=== PATIENT | female | born 1960 | race Caucasian/White ===

== ENCOUNTER → 2019-11-04 | Outpatient (CLI) | payer BC ==
--- NOTE | 2019-11-04 12:40 | Diagnostic Imaging Report ---
INDICATION: Pain and swelling in left knee. TECHNIQUE: AP, oblique, and lateral views of the left knee are obtained. FINDINGS: No fracture or acute bony abnormality is seen. Joint spaces are unremarkable. IMPRESSION: Negative left knee. Dictated by: Dictated on workstation # [id number]
== END ==
LOC: RAD FS 12:26
PROVIDERS: ATTEND Nurse Practitioner
DX: M25.562 Pain in left knee (principal)
CPT/HCPCS: 73562

== ENCOUNTER → 2019-12-15 | Outpatient (CLI) | payer BC ==
--- NOTE | 2019-12-15 15:52 | Diagnostic Imaging Report ---
PROCEDURE: MRI right joint upper extremity without contrast. TECHNIQUE: Multiplanar, multisequence non contrast-enhanced MRI of the right upper extremity was accomplished. INDICATION: Injury. Shoulder pain. COMPARISON: There are no prior studies available for comparison. FINDINGS: The T2 fat-saturated series shows a prominent area of increased signal within the substance of the midportion of the rotator cuff (page 7/17). There is also a much smaller area of altered signal along the anterior insertion of the rotator cuff. These findings are suspicious for partial tears. It is conceivable that these could also be related to tendinosis alone. The supraspinatus muscle is not retracted or bunched. There is mild hypertrophy of the acromioclavicular joint and this does result in slight narrowing of the outlet for the supraspinatus muscle. The labrum is thinned centrally and probably slightly torn on a degenerative basis. Furthermore, there is a band of increased signal extending through the superior labrum on the T2 fat-saturated series (image 8/17). This does suggest a SLAP 2 tear. The biceps tendon and the subscapularis tendon are intact. There is no abnormal signal arising from the osseous structures to suggest bone edema or fracture. There is an area of altered signal in the greater tuberosity. This is probably due to degenerative disease. There is a trace amount of fluid in the glenohumeral joint. There is also a small amount of fluid in the bursa anterior to the joint. There is also a trace amount of fluid in the subdeltoid bursa. The presence of the fluid does suggest that there is an element of mild bursitis present. IMPRESSION: 1. The areas of altered signal within the rotator cuff are indeterminate. Whether these are secondary to partial tears or tendinosis alone is unclear. The supraspinatus muscle however is not retracted or bunched. 2. There is mild hypertrophy of the acromioclavicular joint and this does result in slight narrowing of the outlet for the supraspinatus muscle. 3. The labrum is slightly torn centrally on a degenerative basis. There also appears to be a SLAP 2 tear. 4. There is no acute bony abnormality identified. 5. There is a small joint effusion present. The fluid in the bursa anterior to the shoulder joint and the trace amount of fluid in the subdeltoid bursa also suggests that there is an element of mild bursitis present. Dictated by: Dictated on workstation # [id number]
--- NOTE | 2019-12-15 16:11 | Diagnostic Imaging Report ---
PROCEDURE: MRI left joint lower extremity without contrast. TECHNIQUE: Multiplanar, multisequence non contrast-enhanced MRI of the left lower extremity was accomplished. INDICATION: Knee pain after fall. FINDINGS: Images are somewhat limited due to motion on several of the acquisitions. Anterior cruciate and posterior cruciate ligaments are intact. Both the superficial and deep components of the medial collateral ligament are intact. Biceps femoris, tibial collateral and iliotibial band are intact. Popliteus tendon is intact. There is some myxoid degeneration in the posterior horn of the medial meniscus. Anterior horn of the medial meniscus is unremarkable. Lateral meniscus is normal in signal intensity and morphology. Quadriceps tendon and patellar tendons are intact. There is a small knee joint effusion. The articular cartilage is relatively well maintained in all 3 knee joint compartments. There are no areas of underlying marrow edema. IMPRESSION: 1. 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 2. Small knee joint effusion. 3. No other internal derangement of the knee. Dictated by: Dictated on workstation # [id number]
== END ==
LOC: RAD 12:02
PROVIDERS: ATTEND Family Medicine
DX: M70.51 Other bursitis of knee, right knee (principal); M25.362 Other instability, left knee; M25.511 Pain in right shoulder; M23.8X2 Other internal derangements of left knee; M25.462 Effusion, left knee; M25.411 Effusion, right shoulder; M19.011 Primary osteoarthritis, right shoulder
CPT/HCPCS: 73221; 73721